=== PATIENT | female | born 1955 | race Caucasian/White ===

== ENCOUNTER 2017-01-08 09:24 | Inpatient (IN) | payer MEDICARE, MEDICAID ==
[~2017-01-08] VITALS: Ht 180.3 cm; Wt 104.0 kg
[2017-01-08] MEDS ORDERED: LEVO75TA5 PO (09:55)
[2017-01-08] MEDS ORDERED: SODIUM CHLORIDE FLUSH 10ML SYR IVF ONE (10:00)
[2017-01-08] MEDS ORDERED: ASPIRIN 81 MG TABLET CHEW PO ONE (10:00)
[2017-01-08] MEDS ORDERED: ASPIRIN 81 MG TABLET CHEW ONE (10:01)
[2017-01-08 10:44] LABS: BLOOD UREA NITROGEN 16 mg/dL (7-18)
[2017-01-08] MEDS ORDERED: SODIUM CHLORIDE FLUSH 10ML SYR IVF PRN (11:30)
[2017-01-08] MEDS ORDERED: ONDANSETRON 2MG/ML, 2ML IVP PRN (12:00)
[2017-01-08] MEDS ORDERED: BISACODYL 10 MG SUPP PR PRN (12:00)
[2017-01-08] MEDS ORDERED: DOCUSATE 100 MG CAPSULE PO PRN (12:00)
[2017-01-08] MEDS ORDERED: ACETAMINOPHEN 325 MG TABLET PO PRN (12:00)
[2017-01-08] MEDS ORDERED: POLYETHYLENE GLYCOL 17 GM PACKET PO PRN (12:00)
[2017-01-08 12:50] LABS: IS PT STATUS REG ER OR PRE ER? YES
[2017-01-08] MEDS: SODIUM CHLORIDE 0.9% 1,000 ML IV SCH (14:21)
[2017-01-08 14:22] VITALS: BP 143/88
[2017-01-08] MEDS: ENOXAPARIN 100 MG/ML SQ SCH (17:44)
[2017-01-08 18:12] LABS: IS PT STATUS REG ER OR PRE ER? NO
[2017-01-08 19:58] VITALS: BP 120/78
[2017-01-08 22:24] LABS: PATH.CAST-FLAG NOT PRESENT; SPERM-FLAG NOT PRESENT; SRC-FLAG NOT PRESENT; XTAL-FLAG NOT PRESENT; YLC-FLAG NOT PRESENT
[2017-01-09] MEDS: SODIUM CHLORIDE 0.9% 1,000 ML IV SCH (00:59)
[2017-01-09 01:45] VITALS: BP 125/77
[2017-01-09 05:34] LABS: ASPARTATE AMINO TRANSFERASE 16 U/L (15-37); BLOOD UREA NITROGEN 13 mg/dL (7-18)
[2017-01-09] MEDS: ENOXAPARIN 100 MG/ML SQ SCH (06:02)
[2017-01-09 07:00] VITALS: BP 119/79
[2017-01-09] MEDS ORDERED: LEVOTHYROXINE 75 MCG TABLET PO SCH (09:00)
[2017-01-09] MEDS ORDERED: METOPROLOL SUCCINATE 25 MG TAB.ER.24H PO SCH (09:30)
[2017-01-09] MEDS ORDERED: APIX5TAB PO (09:50)
[2017-01-09] MEDS ORDERED: METO25TA91 PO (09:50)
[2017-01-09] MEDS ORDERED: ALPR-475 PO (11:09)
[2017-01-09] MEDS ORDERED: METO25TA35 PO (11:16)
== END 2017-01-09 11:45 | disposition home or self-care (01) | DRG 309 ==
LOC: ED 11:12 → EDIP 11:13 → ED 11:36 → 5SO 13:21
PROVIDERS: ADMIT Hospitalist; ATTEND Hospitalist
PROC: 4B02XSZ Measurement of Cardiac Pacemaker, External Approach (ICD-10-PCS; principal; 2017-01-08)
DX: I48.0 Paroxysmal atrial fibrillation (principal); D68.69 Other thrombophilia; J98.11 Atelectasis; I47.1 Supraventricular tachycardia; E03.9 Hypothyroidism, unspecified; R07.9 Chest pain, unspecified; F41.9 Anxiety disorder, unspecified; H91.90 Unspecified hearing loss, unspecified ear; I10 Essential (primary) hypertension; I20.9 Angina pectoris, unspecified; I69.320 Aphasia following cerebral infarction; Z82.49 Family history of ischemic heart disease and other diseases of the circulatory system; Z91.19 Patient's noncompliance with other medical treatment and regimen; Z95.0 Presence of cardiac pacemaker; I69.311 Memory deficit following cerebral infarction; I69.398 Other sequelae of cerebral infarction
CPT/HCPCS: 36415; 71010; 80048; 80053; 80061; 81001; 82040; 83735; 83880; 84100; 84443; 84484; 85025; 85379; 85610; 85730; 87086; 87147; 93005; 99285; J1650; J7030

== ENCOUNTER 2018-08-21 07:55 | Emergency (ER) | payer MEDICAID, MEDICARE ==
[~2018-08-21] VITALS: Ht 180.3 cm; Wt 102.6 kg
[~2018-08-21 07:55] MED LIST: ALPR-475 PO; APIX5TAB PO; LEVO75TA5 PO; METO25TA35 PO; METO25TA91 PO
[2018-08-21] MEDS ORDERED: ASPIRIN 81 MG TABLET CHEW ONE (08:18)
[2018-08-21] MEDS ORDERED: SODIUM CHLORIDE FLUSH 10ML SYR IVF ONE (08:30)
[2018-08-21] MEDS ORDERED: ASPIRIN 81 MG TABLET CHEW PO ONE (08:30)
[2018-08-21 08:49] LABS: BASOPHILS # (AUTO) 0.04 x10^3/uL (0-0.1); BASOPHILS % (AUTO) 1 % (0-1); EOSINOPHILS # (AUTO) 0.31 x10^3/uL (0-0.4); EOSINOPHILS % (AUTO) 5 % (1-7); LYMPHOCYTES # (AUTO) 1.67 x10^3/uL (1-3.4); LYMPHOCYTES % (AUTO) 27 % (22-44); MD NO; MEAN CORPUSCULAR HEMOGLOBIN 30.8 pg (27.0-34.8); MEAN CORPUSCULAR HGB CONC 33.9 g/dL (32.4-35.8); MEAN CORPUSCULAR VOLUME 90.8 fL (80-100); MEAN PLATELET VOLUME 9.9 fL (7.4-10.4); MONOCYTES # (AUTO) 0.43 x10^3/uL (0.2-0.8); MONOCYTES % (AUTO) 7 % (2-9); NEUTROPHILS # (AUTO) 3.69 x10^3/uL (1.8-6.8); NEUTROPHILS % (AUTO) 60 % (42-75); PLATELET COUNT 241 x10^3/uL (130-400); RED BLOOD COUNT 4.71 x10^6/uL (3.82-5.3); RED CELL DISTRIBUTION WIDTH 13.6 % (9.6-15.2)
[2018-08-21 08:55] LABS: ALBUMIN 3.7 g/dL (3.4-5.0); ANION GAP 9 mmol/L (5-15); CALCIUM 8.7 mg/dL (8.5-10.1); CHLORIDE 108 mmol/L (98-107); CREATININE 0.84 mg/dL (0.55-1.02)
[2018-08-21 08:58] LABS: TROPONIN I < 0.015 ng/mL (0.000-0.045)
[2018-08-21] MEDS ORDERED: OMNIPAQUE 350 MG/ML, 100ML BOTTLE ONE (09:44)
[2018-08-21 10:31] VITALS: BP 169/84
== END 2018-08-21 10:53 | disposition home or self-care (01) ==
LOC: ED 09:43
DX: R07.89 Other chest pain (principal); J45.909 Unspecified asthma, uncomplicated; I10 Essential (primary) hypertension; I48.91 Unspecified atrial fibrillation
CPT/HCPCS: 36415; 71045; 71275; 80048; 82040; 83880; 84484; 85025; 85379; 93005; 99284; Q9967